=== PATIENT | female | born 1995 | race Caucasian/White ===

== ENCOUNTER → 2017-11-22 17:46 | Outpatient (CLI) | payer OTHER, MEDICAID, SELFPAY | PROVIDERS: Family Provider Nurse Practitioner Family; PCP Nurse Practitioner Family; Referring Provider Obstetrics & Gynecology; Visit Provider Obstetrics & Gynecology | DX: N91.2 Amenorrhea, unspecified (principal) | CPT/HCPCS: 36415; 84702 ==

== ENCOUNTER → 2017-11-24 17:33 | Outpatient (CLI) | payer OTHER, MEDICAID, SELFPAY | PROVIDERS: Family Provider Nurse Practitioner Family; PCP Nurse Practitioner Family; Referring Provider Obstetrics & Gynecology; Visit Provider Obstetrics & Gynecology | DX: N91.2 Amenorrhea, unspecified (principal) | CPT/HCPCS: 36415; 84702 ==

== ENCOUNTER → 2017-12-01 13:50 | Outpatient (CLI) | payer OTHER, MEDICAID, SELFPAY ==
--- NOTE | 2017-12-01 13:51 | US_ITS ---
STUDY: FIRST TRIMESTER OBSTETRICAL ULTRASOUND REASON FOR EXAM: Female, 22 years old. Gestational age/dates. LMP: 10/09/2017 TECHNIQUE: Transvaginal # of Images: 73 TECHNICAL QUALITY: Adequate. PRIOR ULTRASOUND: None. FINDINGS: There is visualization of a single gestational sac in a normal intrauterine position. The mean sac diameter (MSD) measures 2.6 cm, indicating an estimated gestational age (EGA) of 7 weeks, 6 days. The gestational sac shape is within normal limits. There is a visualized yolk sac. The yolk sac measures 3.9 mm. There is visualization of a live embryo. The crown-rump length (CRL) measures 1.46 cm, indicating an estimated gestational age (EGA) of 7 weeks, 6 days. There is demonstrated cardiac activity with a heart rate of 157 bpm. The estimated gestation age (EGA) by LMP is 7 weeks, 4 days. The estimated date of delivery (EMMA) by LMP is 07/16/2018. The estimated gestation age (EGA) by US is 7 weeks, 6 days. The estimated date of delivery (EMMA) by US is 07/14/2018. The uterus measures 9.3 x 9.3 x 6.3 cm. Retroverted uterus. Hypoechoic structure adjacent to the gestational sac/small subchorionic hemorrhage. There is no demonstrated uterine fibroid. The cervix is closed. The right ovary measures 2.6 x 1.9 x 2.1 cm. There is no right ovarian cyst. There is no visualized right adnexal mass or complex lesion. The left ovary measures 4.0 x 2.2 x 1.9 cm. There is no left ovarian cyst. There is no visualized left adnexal mass or complex lesion. There is no fluid in the cul de sac. US/Transvaginal w/Preg US IMPRESSION: 1. Single intrauterine is seen with an estimated gestational age: 7 weeks 6 days and EMMA: 07/14/2018. Based on LMP gestational age: 7 weeks 4 days and EMMA: 07/16/2018. 2. Retroverted uterus. Electronically Signed: Osorio Cruz MD at 10:50 EDT Tel , Service support ,
== END ==
PROVIDERS: Family Provider Nurse Practitioner Family; PCP Nurse Practitioner Family; Referring Provider Obstetrics & Gynecology; Visit Provider Obstetrics & Gynecology
DX: Z36.87 Encounter for antenatal screening for uncertain dates (principal)
CPT/HCPCS: 76817

== ENCOUNTER → 2017-12-20 15:15 | Outpatient (CLI) | payer OTHER, MEDICAID, SELFPAY ==
[2017-12-20 15:54] LABS: Absolute Lymphocyte Count 1.56 X10^3/ul (0.83-4.51); Absolute Neutrophil Count 6.2 X10^3/uL (2.0-7.7); Basophil# 0.02 X10^3/uL; Basophil% 0.2 % (0-1); Eosinophil# 0.04 X10^3/uL; Eosinophils% 0.5 % (0-5); Hematocrit 37.3 % (37-47); Hemoglobin 12.7 g/dl (12.0-15.0); Lymphocyte # 1.56 X10^3/ul (4.0); Lymphocyte % 18.6 % (19-41); Mean Corpuscular Hgb 29.7 pg (27.0-32.0); Mean Corpuscular Volume 87.4 fL (81-99); Mean Platelet Vol. 10.2 fl (6.2-12.0); Monocyte% 7.1 % (0-10); Neutrophil # 6.16 X10^3/uL (2.7-7.7); Neutrophil % 73.4 % (47-70); Platelet Count 241 K/mm3 (150-450); RBC Distribution Width CV 13.4 % (11.6-14.6); RBC Distribution Width SD 41.9 fl (35.1-43.9); Red Blood Count 4.27 M/mm3 (4.2-5.4); White Blood Count 8.4 K/mm3 (4.4-11.0)
[2017-12-20 15:57] LABS: POSITIVE COUNT NO; POSITIVE DIFFERENTIAL NO; POSITIVE MORPHOLOGY NO
[2017-12-20 17:11] LABS: HIV - WCH Non-Reactive (Nonreactive); Rubella IgG 45.9 IU/mL
[2017-12-20 23:55] LABS: Chlamydia Trachomatis by PCR Negative (Negative); Neisserai gonorrhoeae by PCR Negative (Negative); Probe Check PASS; Sample Adequacy Control PASS; Specimen Processing Control PASS
[2017-12-22 03:50] LABS: Rapid Plasmin Reagin (RPR) NONREACTIVE (NONREACTIVE)
[2017-12-22 10:33] LABS: HEPATITIS B SURFACE AG Negative (Negative)
[2017-12-26 14:10] LABS: HPV Reflexed? NOT INDICATED
== END ==
PROVIDERS: Nurse Practitioner Women's Health; Family Provider Nurse Practitioner Family; PCP Nurse Practitioner Family; Referring Provider Obstetrics & Gynecology; Visit Provider Obstetrics & Gynecology
DX: Z34.80 Encounter for supervision of other normal pregnancy, unspecified trimester (principal); Z12.4 Encounter for screening for malignant neoplasm of cervix
CPT/HCPCS: 36415; 85025; 86592; 86703; 86762; 86850; 86900; 87086; 87088; 87340; 87491; 87591; 87624; 88175; G0145

== ENCOUNTER → 2018-04-10 15:06 | Outpatient (CLI) | payer OTHER, MEDICAID, SELFPAY ==
[2018-04-10 14:33] VITALS: BMI 26.9
[2018-04-10 16:41] LABS: Absolute Lymphocyte Count 1.28 X10^3/ul (0.83-4.51); Basophil# 0.01 X10^3/uL; Basophil% 0.1 % (0-1); Eosinophil# 0.05 X10^3/uL; Eosinophils% 0.6 % (0-5); Hematocrit 30.3 % (37-47); Lymphocyte # 1.28 X10^3/ul (4.0); Lymphocyte % 16.1 % (19-41); Mean Corpuscular Hgb 30.8 pg (27.0-32.0); Mean Corpuscular Volume 93.2 fL (81-99); Mean Platelet Vol. 10.2 fl (6.2-12.0); Monocyte# 0.56 X10^3/uL; Monocyte% 7.1 % (0-10); Neutrophil # 5.96 X10^3/uL (2.7-7.7); Neutrophil % 75.1 % (47-70); Platelet Count 204 K/mm3 (150-450); RBC Distribution Width CV 13.3 % (11.6-14.6); Red Blood Count 3.25 M/mm3 (4.2-5.4); White Blood Count 7.9 K/mm3 (4.4-11.0)
[2018-04-10 16:42] LABS: POSITIVE COUNT NO; POSITIVE DIFFERENTIAL NO; POSITIVE MORPHOLOGY NO
[2018-04-10 16:46] LABS: Glucose Challenge Gest 1H 50g 120 mg/dL (70-140)
== END ==
PROVIDERS: Family Provider Nurse Practitioner Family; PCP Nurse Practitioner Family; Referring Provider Obstetrics & Gynecology; Visit Provider Obstetrics & Gynecology
DX: Z34.80 Encounter for supervision of other normal pregnancy, unspecified trimester (principal)
CPT/HCPCS: 36415; 82950; 85025; 86850; 86900

== ENCOUNTER 2018-05-25 16:01 | Outpatient (CLI) | payer OTHER, MEDICAID, SELFPAY ==
[2018-05-24 14:14] VITALS: BMI 26.9
[2018-05-25 16:17] VITALS: BMI 31.1
[2018-05-25 17:15] LABS: Color, Urine Yellow (Yellow); Glucose, Dipstick Normal (Normal); Ketone-Dipstick 5 mg/dl (Negative); Leukocyte Esterase-Dipstick 25 /ul (Negative); Nitrite-Dipstick Negative (Negative); Occult Blood-Urine Negative /ul (Negative); Protein-Dipstick Negative (Negative); Specific Gravity, Urine 1.015 (1.002-1.030); Urine Bilirubin Dipstick Negative (Negative); Urine Clarity Sl. Cloudy (Clear); Urine Urobilinogen Normal (Normal)
--- NOTE | 2018-05-27 08:53 | OB.TRI.PN ---
Progress Notes Date of Service: 05/25/18 Progress Note: Patient presented with small amount of vaginal bleeding suspected UTI. Cervix was checked and not dilated heart tones 140s moderate variability reactive no decelerations [place]: No regular contractions Assessment and plan vaginal bleeding suspected UTI will send urine for culture reviewed labor precautions category 1 tracing reactive NST DC home Laboratory Studies: Laboratory Tests 05/25/18 Range/Units 17:00 Urine Color Yellow (Yellow) Urine Clarity Sl. Cloudy (Clear) Urine pH 6.0 (5.0 - 8.0) Ur Specific [place] 1.015 (1.002-1.030) Urine Protein Negative (Negative) mg/dl Urine Glucose (UA) Normal (Normal) mg/dl Urine Ketones 5 H (Negative) mg/dl Urine Occult Blood Negative (Negative) /ul Urine Nitrite Negative (Negative) Urine Bilirubin Negative (Negative) mg/dL Urine Urobilinogen Normal (Normal) mg/dl Ur Leukocyte Esterase 25 H (Negative) /ul
== END 2018-05-25 17:40 | disposition home or self-care (01) ==
LOC: WPOUT 16:03 → WP 05-28 09:45
PROVIDERS: Family Provider Nurse Practitioner Family; PCP Nurse Practitioner Family; Referring Provider Obstetrics & Gynecology; Visit Provider Obstetrics & Gynecology
DX: O46.90 Antepartum hemorrhage, unspecified, unspecified trimester (principal); Z3A.00 Weeks of gestation of pregnancy not specified
CPT/HCPCS: 59025; 59050; 81002; 87086; 87088; 99218; G0378

== ENCOUNTER → 2018-06-07 16:23 | Outpatient (CLI) | payer OTHER, MEDICAID, SELFPAY ==
[2018-06-07 15:08] VITALS: BMI 30.9
--- NOTE | 2018-06-07 16:38 | US_ITS ---
STUDY: SECOND AND THIRD TRIMESTER OBSTETRICAL ULTRASOUND - LIMITED REASON FOR EXAM: Female, 22 years old. Evaluate growth LMP: Unknown. PRIOR ULTRASOUND: None. TECHNIQUE: Transabdominal TECHNICAL QUALITY: Adequate. FINDINGS: There is a single intrauterine fetus. The fetus is in a cephalic presentation. There is demonstrated cardiac activity with a heart rate of 158 bpm. There is a normal amniotic fluid volume. The largest amniotic fluid pocket measures 6.1 cm. The amniotic fluid index (KYRA) is 13.7 cm. The placenta is anterior in location and is not low lying. There are Grade 1 placental changes. The cervix measures 3.4 cm cm in length. BIOMETRY: BPD: 8.5 cm: 34 weeks, 1 days HC: 32.7 cm: 37 weeks, 2 days AC: 31.7 cm: 35 weeks, 5 days FL: 6.8 cm: 35 weeks, 0 days age by prior US: 34 weeks, 5 days. EMMA by prior US: 07/14/2018. age by current US: 35 weeks, 4 days. EMMA by current US: 07/08/2018. Estimated weight: 2684 grams, +/- 392 grams, 68 percentile. Gender: Female US/OB Limited With Biometrics IMPRESSION: Single live intrauterine at gestational age of 35 weeks 4 days with estimated date of delivery 07/08/2018 Electronically Signed: Mitchel Bates DO at 20:29 EDT Tel , Service support ,
--- NOTE | 2018-06-07 16:38 | US_ITS ---
STUDY: OBSTETRICAL ULTRASOUND - BIOPHYSICAL PROFILE REASON FOR EXAM: Female, 22 years old. Evaluate well-being LMP: Unknown. PRIOR ULTRASOUND: None. TECHNIQUE: Transabdominal TECHNICAL QUALITY: Adequate. FINDINGS: There is a single intrauterine fetus. The fetus is in a cephalic presentation. There is demonstrated cardiac activity with a heart rate of 139 bpm. There is a normal amniotic fluid volume. The largest amniotic fluid pocket measures 5.3 cm. The amniotic fluid index (KYRA) is 13.7 cm. The placenta is anterior in location and is not low lying. There are Grade 1 placental changes. BIOPHYSICAL PROFILE: Breathing Movements (FBM): 2 Gross Body Movements (GBM): 2 Tone (FT): 2 Amniotic Fluid Volume (AFV): 2 TOTAL SCORE: US/Biophysical Profile IMPRESSION: Normal biophysical profile of 09/20. Electronically Signed: Mitchel Bates DO at 20:27 EDT Tel , Service support ,
== END ==
PROVIDERS: Family Provider Nurse Practitioner Family; PCP Nurse Practitioner Family; Referring Provider Obstetrics & Gynecology; Visit Provider Obstetrics & Gynecology
DX: Z34.80 Encounter for supervision of other normal pregnancy, unspecified trimester (principal)
CPT/HCPCS: 76816; 76818

== ENCOUNTER → 2018-06-21 16:41 | Outpatient (CLI) | payer OTHER, MEDICAID, SELFPAY ==
[2018-06-21 14:52] VITALS: BMI 30.9
== END ==
PROVIDERS: Family Provider Nurse Practitioner Family; PCP Nurse Practitioner Family; Referring Provider Nurse Practitioner Women's Health; Visit Provider Nurse Practitioner Women's Health
DX: Z34.80 Encounter for supervision of other normal pregnancy, unspecified trimester (principal)
CPT/HCPCS: 87081

== ENCOUNTER 2018-06-30 02:00 | Outpatient (CLI) | payer OTHER, MEDICAID, SELFPAY ==
[2018-06-29 15:32] VITALS: BMI 30.9
[2018-06-30 02:41] VITALS: BMI 36.9
[2018-06-30 03:16] LABS: ROM Internal Control Test YES-OK TO RESULT pt. (Internal QC); ROM Patient Test Negative (Negative)
--- NOTE | 2018-07-05 21:02 | OB.TRI.PN ---
Progress Notes Date of Service: 06/30/18 Progress Note: Once for contractions but no cervical change heart tones 130s moderate variability reactive no decelerations category 1 [address] [place]: Irregular Assessment false labor no cervical change DC home labor precautions reactive NST Laboratory Studies: Laboratory Tests 06/30/18 Range/Units 02:45 Vag Amniotic Fld Detect Negative (Negative)
--- NOTE | 2018-07-05 21:05 | OB.TRI.PN_ITS ---
Progress Notes Date of Service: 06/30/18 Progress Note: Once for contractions but no cervical change heart tones 130s moderate variability reactive no decelerations category 1 tracing [place]: Irregular Assessment false labor no cervical change DC home labor precautions reactive NST Laboratory Studies: Laboratory Tests 06/30/18 Range/Units 02:45 Vag Amniotic Fld Detect Negative (Negative)
== END 2018-06-30 03:45 | disposition home or self-care (01) ==
LOC: WPOUT 02:34 → WP 02:35
PROVIDERS: Family Provider Nurse Practitioner Family; PCP Nurse Practitioner Family; Visit Provider Obstetrics & Gynecology
DX: O47.9 False labor, unspecified (principal); Z3A.00 Weeks of gestation of pregnancy not specified
CPT/HCPCS: 59025; 59050; 84112; 99218; G0378

== ENCOUNTER 2018-07-06 16:45 | Inpatient (IN) | payer OTHER, MEDICAID, SELFPAY ==
[2018-07-06 16:33] VITALS: BMI 36.9
[2018-07-06] MEDS: Lactated Ringers 1,000 ML 50 ML IV ×3 (17:00→21:38)
[2018-07-06 17:10] VITALS: BMI 31.5
[2018-07-06 17:28] LABS: Absolute Lymphocyte Count 1.49 X10^3/ul (0.83-4.51); Absolute Neutrophil Count 7.3 X10^3/uL (2.0-7.7); Basophil# 0.02 X10^3/uL; Basophil% 0.2 % (0-1); Eosinophil# 0.03 X10^3/uL; Eosinophils% 0.3 % (0-5); Hematocrit 35.3 % (37-47); Hemoglobin 11.7 g/dl (12.0-15.0); Lymphocyte # 1.49 X10^3/ul (4.0); Lymphocyte % 15.2 % (19-41); Mean Corp Hgb Conc 33.1 g/gl (32-36); Mean Corpuscular Hgb 29.4 pg (27.0-32.0); Mean Corpuscular Volume 88.7 fL (81-99); Mean Platelet Vol. 10.2 fl (6.2-12.0); Monocyte# 0.88 X10^3/uL; Neutrophil # 7.29 X10^3/uL (2.7-7.7); Neutrophil % 74.5 % (47-70); POSITIVE COUNT NO; POSITIVE DIFFERENTIAL NO; POSITIVE MORPHOLOGY NO; Platelet Count 190 K/mm3 (150-450); RBC Distribution Width CV 15.1 % (11.6-14.6); RBC Distribution Width SD 48.7 fl (35.1-43.9); Red Blood Count 3.98 M/mm3 (4.2-5.4); White Blood Count 9.8 K/mm3 (4.4-11.0)
--- NOTE | 2018-07-06 18:47 | PCM.HP.OB ---
History Date of Admission: 07/06/18 Final EMMA: 07/14/18 Final EMMA Source: US <20 weeks Gestational age: 38 Weeks and 6 Days History of this : This is a 22 year-old, G 2, P 1, at 38 6/7 wk weeks gestational age. care established at 10 dk EGA Uncomplicated. LABS: B positive Rubella immune GBS negative Hepatitis Neg Prior h/o 9# 5 oz Epidural with fractured coccyx Medical History: Medical History (Last Reviewed 07/06/18 @ 16:16 by Ira Madison) Migraines G43.909 Allergies No Known Allergies Allergy (Verified 07/06/18 17:11) Home Medications: Home Medications ferrous sulfate 325 mg (65 mg iron) tablet 325 mg PO DAILY tab 04/24/18 vitamin #56-iron 35 mg and 5 mg-folic acid 1 mg-dha capsule 1 cap PO QHS 07/06/18 Smoking Status: Former smoker Alcohol: None Number of Fetus(es): 1 Heart Tracins accels TOCO Analysis: UCs q 3- 4mins. Intermittent tracing History Past Pregnancies: Past Pregnancies Delivery Date Name GA/Weeks Outcome Route Weight Gender Labor Length Anesthesia Delivery Location Provider FOB Expected Infant Delivery Method: Spontaneous Vaginal Review of Systems Constitutional: Denies: Anorexia Gynecological: Reports: - - UCs q 3-4 minutes, not painful. Denies: Vaginal bleeding Physical Exam General: Alert, Oriented x3, Cooperative, No apparent distress HEENT: Atraumatic Abdomen: Soft, Non Tender, Gravid Extremities:: No clubbing, No cyanosis Neurological: Cranial nerves II-XII grossly intact LOCKSTITCH TOPSTITCHER: Normal external genitalia Estimated gestational size: Appropriate for gestational size Presentation: Cephalic Cervix Dilation (cm): 5 Station: -2 Assessment/Plan All Active Problems (Last Reviewed 07/06/18 @ 16:16 by Ira Madison) IUD contraception (Acute) Anemia affecting (Acute) (Acute) Supervision of other normal (Acute) Headache in (Resolved) This is a 22 year-old, G 2, P 1, at 38 6/7 weeks gestational age. Advanced cervical dilatation 5 cm with BBOW. admit for labor and delivery. Plans epidural. Anticipate AROM when epidural in place.
[2018-07-06] MEDS: fentaNYL-bupivacaine (epidural) 100 ML BAG EPIDURAL (19:55)
--- NOTE | 2018-07-06 20:06 | PCM.PN.BLA ---
Progress Note LABOR PROGRESS NOTE Comfortable w/ epidural AVSS EFM 140s category I tracing. UCs irreg pick up attendant CX: /-2 mod firm A/P: 38 6/7 wk labor. AROM Epidural in place. Watch progress, consider pitocin prn.
--- NOTE | 2018-07-06 20:31 | NURSING ---
Dr Vasquez aware of pt's plan for epidural, but feeling no pain at this time. Dr vasquez headed to emergency surgery in main OR and then will come to over to place epidural after.
[2018-07-06] MEDS: Oxytocin 30 units/NS 500 ml 30 UNITS/500 ML IV.SOLN IV (21:05)
[2018-07-06] MEDS: Oxytocin 30 units/NS 500 ml 30 UNITS/500 ML IV.SOLN 334 UNITS IV (22:31)
[2018-07-06] MEDS: Methylergonovine 0.2 MG/ML Ampul IM (22:39)
--- NOTE | 2018-07-06 22:40 | DCINST_ITS ---
Discharge Diet: No Restrictions Discharge Activity: May Shower, May Take a Tub Bath May resume sexual activity in: 4-6 weeks Additional Activity Instructions:: Nothing in the vagina for 4-6 weeks. You may return to work/school in 6 weeks. Additional Instructions: If you experience any of the following, contact your healthcare provider. * Bleeding that soaks a pad every hour for 2 hours * Fever 100.4 or higher * Unrelieved abdominal pain * Problems urinating (including inability to urinate or burning while urinating). * Visual changes * Severe headache * Flu-like symptoms * Pain or redness in one of both of your breasts * Pain, warmth, tenderness or swelling in your legs, especially the calf area * Frequent nausea and vomiting * Symptoms of depression or anxiety If you experience any of the following, call 911 or go to the nearest Emergency Room. * Chest pain * Problems breathing * Seizure activity * Partial or complete paralysis of a body part, slurred speech, weakness or drooping of the face, or a sudden inability to walk or hold your balance Allergies/Adverse Reactions: Allergies No Known Allergies Allergy (Verified 07/06/18 17:11) Medications to take at Discharge ferrous sulfate 325 mg (65 mg iron) tablet 325 mg PO DAILY tab 04/24/18 vitamin #56-iron 35 mg and 5 mg-folic acid 1 mg-dha capsule 1 cap PO QHS 07/06/18 Please Follow Up With: Deborah Tarango MD When: Call to make an appointment with your doctor in 6 weeks. If you had elevated Blood Pressure or 4th degree laceration you will need to be seen in 2 weeks. Primary Care Physician: Xiao Plasencia NP-C [Primary Care Provider] - Test Results: Test results from this visit will be discussed in further detail at your follow- up appointment, if applicable. Proposed Discharge Date: 07/08/18
--- NOTE | 2018-07-06 22:41 | PCM.OPRPT ---
Vaginal Delivery Maternal Presentation: Active Labor 38 6/7 wk EGA Labor Amniotic Membrane Rupture Type: Artificial Amniotic Fluid Description: Clear Final EMMA: 07/14/18 Gestational age: 38 Weeks and 6 Days Date of Procedure: 07/06/18 Pre-Operative Diagnosis: 38 6/7 wk advanced cervical dilation,labor Post-Operative Diagnosis: same Surgery/ Procedure Performed: Spontaneous Vaginal Delivery Anesthesiologist: Riana Quinones MD Type of Anesthesia: Epidural Description of Procedure: of a mason viable female over intact perineum. Head delivered CAMMY. OP and nares bulb suctioned on perineum. Nuchal cord x one reduced. Shoulders delivered easily. Infant to maternal abdomen. Delayed cord clamp..then cord clamped times two and cut. Routine ABG and VBG collected. PP exam:1st deg posterior vaginal laceration, hemostatic no repair required Placenta delivered by spont expulsion, expression. 3V cord, normal appearing with trailing membranes Mild uterine atony of lower uterina segment. Called back to room for this. Clots evacuated bimanual exam and Banjo curette EBL 475 cc IV Pitocin given. Methergine 0.2 mg IM x one. Cytotec 1000 mcg rectal dose Excellent response noted to these measures. Presentation: Vertex, CAMMY Placental Delivery Description: Spontaneous, Expressed Placenta Disposition: [facility] Cord Vessel Description: 3 Vessels Nuchal Cord Compression: Without compression Cord Gases drawn per routine: ABG, VBG Cord Entanglement: Around neck x 1, loose Drain: Sebastian to straight drain Estimated Blood Loss: 475 cc A gender: Female (1 minute): 8 (5 minute): 9 Episiotomy Description: None Laceration: Midline, Vaginal Extension/lac - no repair required., 1st degree Medications given after delivery: IV Pitocin, IM Methergin, - - Cytotec 1000 mcg OK times one. Complications: None
[2018-07-06] MEDS: miSOPROStol 200 MCG Tablet 1000 MCG RECTAL (22:47)
[2018-07-06] MEDS: Oxytocin 30 units/NS 500 ml 30 UNITS/500 ML IV.SOLN 167 UNITS IV (23:01)
[2018-07-06] MEDS: Acetaminophen 500 MG Tablet 1000 MG PO (23:24)
--- NOTE | 2018-07-07 01:07 | NURSING ---
680EBL = 350 (from delivery) + 330 (from recovery)
[2018-07-07 04:03] VITALS: BP 116/69; PULSE 104; RESP 16; TEMP 37.4; O2SAT 98
--- NOTE | 2018-07-07 04:14 | NURSING ---
Epidural removed, blue tip intact.
[2018-07-07 05:02] LABS: Hematocrit 32.8 % (37-47); Hemoglobin 10.9 g/dl (12.0-15.0); Mean Corp Hgb Conc 33.2 g/gl (32-36); Mean Corpuscular Hgb 29.2 pg (27.0-32.0); Mean Corpuscular Volume 87.9 fL (81-99); Mean Platelet Vol. 9.8 fl (6.2-12.0); Platelet Count 181 K/mm3 (150-450); RBC Distribution Width CV 14.9 % (11.6-14.6); RBC Distribution Width SD 46.9 fl (35.1-43.9); Red Blood Count 3.73 M/mm3 (4.2-5.4); White Blood Count 13.3 K/mm3 (4.4-11.0)
[2018-07-07 05:07] LABS: Scan Indicated on CBC? Y/N NO
--- NOTE | 2018-07-07 07:55 | PN_ITS ---
Subjective: PPD#1 Doing well. No concerns Baby smaller than her first. denies any pain at tailbone (h/o fx with first delivery) nursing well. - Physical Exam General: Alert, Oriented x3, Cooperative, No apparent distress HEENT: Atraumatic Neck: Supple Abdomen: Soft - fundus firm NT , inferior to umbilicus Neurological: Cranial nerves II-XII grossly intact Psych/Mental Status: Normal Affect Vital Signs Temp Pulse Resp BP Pulse Ox 99.3 F H 104 H 16 116/69 98 07/07/18 04:03 07/07/18 04:03 07/07/18 04:03 07/07/18 04:03 07/07/18 04:03 Oxygen Delivery Method Room Air Weight: 86 kg Body Mass Index (BMI) 31.5 Intake and Output for Last 24 Hours 07/05/18 07/06/18 07/07/18 23:59 23:59 23:59 Intake Total 2720 / 2720 Output Total 450 / 450 Balance 2270 / 2270 Laboratory Tests Past 24 Hrs 07/06/18 07/06/18 07/07/18 17:10 17:10 04:45 WBC 9.8 13.3 H RBC 3.98 L 3.73 L Hgb 11.7 L 10.9 L Hct 35.3 L 32.8 L MCV 88.7 87.9 MCH 29.4 29.2 MCHC 33.1 33.2 RDW 15.1 H 14.9 H RDW Differential 48.7 H 46.9 H Plt Count 190 181 MPV 10.2 9.8 Immature Gran % (Auto) 0.800 Neut % (Auto) 74.5 H Lymph % (Auto) 15.2 L [place] % (Auto) 9.0 Eos % (Auto) 0.3 Baso % (Auto) 0.2 Absolute Neuts (auto) 7.3 Absolute Lymphs (auto) 1.49 Total Counted Not Reportable Blood Type B POSITIVE Antibody Screen NEGATIVE Medical Necessity - Tobacco Use Smoking Status: Former smoker Assessment/Plan All Active Problems (Last Reviewed 07/06/18 @ 16:16 by Ira Madison) IUD contraception (Acute) Anemia affecting (Acute) (Acute) Supervision of other normal (Acute) Headache in (Resolved) PPD#1 38 6/7 weeks S/P Stable . B positive. Late delivery. will plan to stay until 07/08/18 Continue routine care
[2018-07-07 10:00] VITALS: BP 109/74; PULSE 88; RESP 16; TEMP 37.3
--- NOTE | 2018-07-07 10:09 | NURSING ---
0900Ambulates to bathroom. Voids 500ml, josey well. Angie care done per pt, demonstrates understanding. Ice pack to perineum per pt request. Returns to bed. FF U/2. No edema noted perineum. Nurses baby with correct latch noted. States she feels good.
[2018-07-07] MEDS: Senna/Docusate Sodium 1 Tablet PO (10:24)
[2018-07-07] MEDS: Ibuprofen 600 MG Tablet PO ×2 (10:24→16:46)
[2018-07-07] MEDS: Acetaminophen 500 MG Tablet 1000 MG PO ×2 (11:40→21:02)
[2018-07-07 17:35] VITALS: BP 109/57; PULSE 87; RESP 16; TEMP 37.7
[2018-07-07 18:00] VITALS: BP 165/91; PULSE 86; RESP 16; TEMP 37.2
--- NOTE | 2018-07-07 19:13 | NURSING ---
1200 Dr. Kidd notified of elevated blood pressure prior to administration of Hydralazine dose at 1100. No new orders.
[2018-07-07 19:20] VITALS: BP 109/59; PULSE 97; RESP 20; TEMP 37.1; O2SAT 96
[2018-07-08 00:04] VITALS: BP 108/88; PULSE 90; RESP 20; TEMP 36.2; O2SAT 98
[2018-07-08] MEDS: Ibuprofen 600 MG Tablet PO ×2 (00:32→08:27)
[2018-07-08] MEDS: Ferrous Sulfate 325 MG Tablet PO (00:37)
--- NOTE | 2018-07-08 00:42 | NURSING ---
Pt requested po iron at this time. Takes prior to sleeping d/t nausea in morning with . Pt wishes to continue to take in evenings. Medication given.
[2018-07-08 03:55] VITALS: BP 110/67; PULSE 76; RESP 18; TEMP 36.4; O2SAT 99
[2018-07-08] MEDS: Acetaminophen 500 MG Tablet 1000 MG PO ×2 (05:31→13:01)
--- NOTE | 2018-07-08 07:33 | PCM.PN.BLA ---
Progress Note LABOR PROGRESS NOTE -- SROM 2330 last night. 40 5/7 wk EGA Comfortable w/ epidural. A neg. GBS neg. AVSS Pitocin induction after SROM (clear fluid) EFM 120-130s with accels to 150s. Avg variability. Category I tracing UCs q 2-3 mins CX 4/100/-2 VTX A/P: 40 5/7 wk EGA SROM. Pitocin induction. Continue pitocin, watch progress and descent. EFM reassuring.
--- NOTE | 2018-07-08 07:49 | PCM.PN.OB ---
Subjective: PPD#2 Doing well. no concerns voiced. - Physical Exam General: Alert, Oriented x3, Cooperative, No apparent distress HEENT: Atraumatic Neck: Supple Abdomen: Soft - Fundus firm NT inferior to umbilicus Extremities: No clubbing, No cyanosis Psych/Mental Status: Normal Affect Vital Signs Temp Pulse Resp BP Pulse Ox 97.6 F L 76 18 110/67 99 07/08/18 03:55 07/08/18 03:55 07/08/18 03:55 07/08/18 03:55 07/08/18 03:55 Oxygen Delivery Method Room Air Weight: 86 kg Body Mass Index (BMI) 31.5 Intake and Output for Last 24 Hours 07/06/18 07/07/18 07/08/18 23:59 23:59 23:59 Intake Total 2720 / 2720 Output Total 950 / 950 Balance 1770 / 1770 Medical Necessity - Tobacco Use Smoking Status: Former smoker Assessment/Plan All Active Problems (Last Reviewed 07/06/18 @ 16:16 by Ira Madison) IUD contraception (Acute) Anemia affecting (Acute) (Acute) Supervision of other normal (Acute) Headache in (Resolved) PPD#2 38 6/7 weeks S/P Stable . Dischg home today. RTO to Dr Tarango in 6 wk for pp check prn sooner.
[2018-07-08 08:00] VITALS: BP 96/53; PULSE 77; RESP 18; TEMP 37.1
[2018-07-08] MEDS: Senna/Docusate Sodium 1 Tablet PO (08:28)
[2018-07-08 13:47] VITALS: BP 104/59; PULSE 85; RESP 18; TEMP 37.1
== END 2018-07-08 13:45 | disposition home or self-care (01) | DRG 768 ==
PROVIDERS: Admitting Provider Obstetrics & Gynecology; Family Provider Nurse Practitioner Family; PCP Nurse Practitioner Family; Referring Provider Obstetrics & Gynecology; Visit Provider Obstetrics & Gynecology
DX: O99.02 Anemia complicating childbirth (principal); D64.9 Anemia, unspecified; O75.89 Other specified complications of labor and delivery; O69.81X0 Labor and delivery complicated by cord around neck, without compression, not applicable or unspecified; Z79.899 Other long term (current) drug therapy; Z87.891 Personal history of nicotine dependence; Z3A.38 38 weeks gestation of pregnancy; Z37.0 Single live birth
CPT/HCPCS: 59025; 59050; 85025; 85027; 86850; 86900; 99218; J7120; G0378

== ENCOUNTER → 2020-09-03 | Outpatient (CLI) | payer OTHER, SELFPAY ==
[2020-09-03 14:57] VITALS: BMI 31.5
== END | disposition home or self-care (01) ==
PROVIDERS: PCP Family Medicine; Visit Provider Obstetrics & Gynecology
DX: N34.0 Urethral abscess (principal)
CPT/HCPCS: 87070; 87077; 87186; 87205

== ENCOUNTER → 2020-09-16 11:19 | Outpatient (CLI) | payer OTHER, SELFPAY ==
[2020-09-03 14:57] VITALS: BMI 31.5
--- NOTE | 2020-09-16 11:22 | US_ITS ---
STUDY: ULTRASOUND OF THE FEMALE PELVIS - COMPLETE REASON FOR EXAM: Female, 24 years old. uterine prolapse LMP: Unknown. TECHNIQUE: Transabdominal TECHNICAL QUALITY: Adequate. COMPARISON: None. FINDINGS: The uterus is retroverted and is in a midline position. The uterus measures 9.2 x 5.5 x 4.9 cm. Normal uterine cervix. The endometrium measures mm in thickness, and is . There is no demonstrated endometrial mass. There is no demonstrated myometrial mass. I.U.D. - The patient does have an I.U.D., in the lower uterine segment, although difficult to determine exact location (not well seen on transabdominal images with retroverted uterus. The right ovary is visualized. The right ovary measures 2.9 x 1.7 x 1.5 cm. There is no right ovarian cyst or ovarian mass. There is no visualized right adnexal mass or complex lesion. There is normal arterial and normal venous vascularity. The left ovary is visualized. The left ovary measures 4.8 x 4.4 x 3.8 cm. 4.1 x 3.8 x 3.3 cm septated cyst of the left ovary, likely hemorrhagic cyst. ACR White Paper guidelines (Collado, et. al. Radiology 2010; 256(3):943-954) suggest no follow-up is necessary. There is no visualized left adnexal mass or complex lesion. There is normal arterial and normal venous vascularity. There is minimal fluid in the cul-de-sac. Visualized urinary bladder is unremarkable. US/Pelvic (Non ) IMPRESSION: 1. Limited due to transabdominal only imaging. 2. IUD of indeterminate location, likely lower uterine segment. Electronically Signed: Edy Enrique MD ([place]) at 8:47 EDT , Service support ,
== END ==
PROVIDERS: PCP Family Medicine; Referring Provider Urology; Visit Provider Urology
DX: N81.4 Uterovaginal prolapse, unspecified (principal)
CPT/HCPCS: 76856

== ENCOUNTER → 2020-10-22 15:06 | Outpatient (CLI) | payer OTHER, SELFPAY ==
[2020-10-22 15:19] LABS: Absolute Lymphocyte Count 1.92 X10^3/uL (0.83-4.51); Absolute Neutrophil Count 4.4 X10^3/uL (2.0-7.7); Basophil# 0.03 X10^3/uL; Basophil% 0.4 % (0-1); Eosinophil# 0.05 X10^3/uL; Eosinophils% 0.7 % (0-5); Hematocrit 39.6 % (37-47); Hemoglobin 12.6 g/dL (12.0-15.0); Lymphocyte # 1.92 X10^3/ul (0.83-4.51); Lymphocyte % 27.8 % (19-41); Mean Corp Hgb Conc 31.8 g/dL (32-36); Mean Corpuscular Hgb 28.8 pg (27.0-32.0); Mean Corpuscular Volume 90.6 fL (81-99); Monocyte# 0.47 X10^3/uL; Monocyte% 6.8 % (0-10); NRBC Flagged by Analyzer 0 % (0-5); Neutrophil # 4.41 X10^3/uL (2.7-7.7); Neutrophil % 63.9 % (47-70); Platelet Count 293 K/mm3 (150-450); RBC Distribution Width CV 13.1 % (11.6-14.6); RBC Distribution Width SD 43.7 fl (35.1-43.9); Red Blood Count 4.37 M/mm3 (4.2-5.4); White Blood Count 6.9 K/mm3 (4.4-11.0)
== END ==
PROVIDERS: PCP Family Medicine; Referring Provider Obstetrics & Gynecology; Visit Provider Obstetrics & Gynecology
DX: N93.9 Abnormal uterine and vaginal bleeding, unspecified (principal)
CPT/HCPCS: 36415; 85025

== ENCOUNTER → 2020-11-25 13:36 | Outpatient (CLI) | payer OTHER, SELFPAY ==
--- NOTE | 2020-11-25 13:53 | US_ITS ---
STUDY: ULTRASOUND OF THE FEMALE PELVIS - COMPLETE REASON FOR EXAM: Female, 25 years old. AUB LMP: 09/26/2020. TECHNIQUE: Transabdominal and Transvaginal TECHNICAL QUALITY: Adequate. COMPARISON: Comparison is made with prior study dated 09/16/2020. FINDINGS: The uterus is retroverted and is in a midline position. The uterus measures 8.5 cm x 7 cm x 5.5 cm. Normal uterine cervix. The endometrium measures 3.1 mm in thickness, and is hyperechoic. A small amount of fluid is seen in the endometrial canal. There is evidence of a 1.7 cm x 0.9 cm x 0.5 cm polyp within the endometrium in the mid to lower uterine segment. There is no demonstrated myometrial mass. I.U.D. - The patient does not have an I.U.D. The right ovary is visualized. The right ovary measures 2.5 cm x 1.5 cm x 1.4 cm. There is no right ovarian cyst or ovarian mass. There is no visualized right adnexal mass or complex lesion. There is normal arterial and normal venous vascularity. The left ovary is visualized. The left ovary measures 3.4 cm x 1.9 cm x 1.4 cm. There is no left ovarian cyst or ovarian mass. There is no visualized left adnexal mass or complex lesion. There is normal arterial and normal venous vascularity. There is no fluid in the cul-de-sac. The pre void volume of the bladder was 285 ml. US/Pelvic (Non ) IMPRESSION: Small amount of endometrial fluid with findings suggestive of a small polyp. Electronically Signed: Reilly Block MD at 14:33 EDT , Service support ,
--- NOTE | 2020-11-25 13:53 | US_ITS ---
STUDY: ULTRASOUND OF THE FEMALE PELVIS - COMPLETE REASON FOR EXAM: Female, 25 years old. AUB LMP: 09/26/2020. TECHNIQUE: Transabdominal and Transvaginal TECHNICAL QUALITY: Adequate. COMPARISON: Comparison is made with prior study dated 09/16/2020. FINDINGS: The uterus is retroverted and is in a midline position. The uterus measures 8.5 cm x 7 cm x 5.5 cm. Normal uterine cervix. The endometrium measures 3.1 mm in thickness, and is hyperechoic. A small amount of fluid is seen in the endometrial canal. There is evidence of a 1.7 cm x 0.9 cm x 0.5 cm polyp within the endometrium in the mid to lower uterine segment. There is no demonstrated myometrial mass. I.U.D. - The patient does not have an I.U.D. The right ovary is visualized. The right ovary measures 2.5 cm x 1.5 cm x 1.4 cm. There is no right ovarian cyst or ovarian mass. There is no visualized right adnexal mass or complex lesion. There is normal arterial and normal venous vascularity. The left ovary is visualized. The left ovary measures 3.4 cm x 1.9 cm x 1.4 cm. There is no left ovarian cyst or ovarian mass. There is no visualized left adnexal mass or complex lesion. There is normal arterial and normal venous vascularity. There is no fluid in the cul-de-sac. The pre void volume of the bladder was 285 ml. US/Transvaginal Non- IMPRESSION: Small amount of endometrial fluid with findings suggestive of a small polyp. Electronically Signed: Reilly Block MD at 14:33 EDT , Service support ,
== END ==
PROVIDERS: PCP Family Medicine; Referring Provider Obstetrics & Gynecology; Visit Provider Obstetrics & Gynecology
DX: N93.9 Abnormal uterine and vaginal bleeding, unspecified (principal)
CPT/HCPCS: 76830; 76856

== ENCOUNTER → 2020-11-30 15:37 | Outpatient (CLI) | payer OTHER, SELFPAY ==
[2020-11-30 16:45] LABS: NATERA MAILED SPECIMEN
== END ==
PROVIDERS: PCP Family Medicine; Referring Provider Obstetrics & Gynecology; Visit Provider Obstetrics & Gynecology
DX: Z13.9 Encounter for screening, unspecified (principal); Z80.41 Family history of malignant neoplasm of ovary
CPT/HCPCS: 36415

== ENCOUNTER 2021-01-05 08:27 | Day surgery (SDC) | payer OTHER, SELFPAY ==
--- NOTE | 2021-01-05 | EMB_PTH ---
PATIENT: SADE WOODRUFF [place] [facility] [place][id number] AGE/SX: 25/F ROOM: RE01/05/[address]: Dr. Deborah Tarango MD : [id number] BED: DIS: 01/05/2021 SPEC #: [id number] RECD: 01/05/21 11:45 STATUS: ANNMARIE REJeovany #: [id number] GAYE: 01/05/21 00:[address]: Deborah Tarango DEPT: SURGICAL PATHOLOGY RECD BY: Gumaro Bryant ENTERED: 01/05/21 11:46 SP TYPE: ENDOM BX/C OTHR DR: Dr. 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 Chronic endometritis. Rare strips of benign endocervix. AM:am 01/06/21 MICROSCOPIC DESCRIPTION Slides are reviewed. GROSS DESCRIPTION Received in fixative is one container labeled with the patient's name and designated endometrial curettings. The specimen consists of multiple fragments of pink hemorrhagic soft tissue that in aggregate measure 5 x 3 x 0.2 cm. The specimen is totally submitted in two cassettes. / SJ:rg 01/05/2021 TC:3 CPT: 98918
--- NOTE | 2021-01-05 07:06 | HP.PCM_ITS ---
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 Deborah Tarango MD) Migraines Family History (Updated 11/30/20 @ 15:33 by Lisa Ross) Grandmother Ovarian cancer Grandfather Prostate cancer Father Basal cell carcinoma Social History current occupational status: employed current occupation: [employer] Smoking Status: Former smoker alcohol intake: never substance use type: does not use seatbelt use: always do you feel safe at home: Yes additional social history: [employer] [facility] Discuss surgical option Details: SADE WOODRUFF is a 25 year old who presents for follow-up of abnormal uterine bleeding. She has been managed with an IUD in the past that was removed due to malposition. She has had heavy irregular bleeding despite being on an oral combination OCP. Upon ultrasound evaluation there is an endometrial polyp seen within the lining. Patient is having heavy clotty bleeding saturating a pad within an hour or 2 and has cramping with it. She also has some dyspareunia with it. Pregancy History 2 Elective abortions Hx Para 2 Spontaneous abortions Hx # Term Pregnancies Ectopic pregnancies Hx # Pregnancies Multiple births # of living children 2 Past Pregnancies Del. Date Name GA/Weeks Outcome Route Bth Weight Infant Gen Labor Lgth Anesthesia Del Locatn Provider FOB 03/15/16 Gretchen 41 live - full term 9 lbs. 4.9 oz. Male 5 hours epidural Josie Stuart 07/06/18 Mohan 39 live - full term 8lbs 15oz Female 3 hours epidural [facility] Dr. Kidd Delivery Date: 03/15/16 Mom received a fractured tailbone during labor TayHeather Delivery Date: 07/06/18 No issues Gricelda,Ira ROS Const Constitutional: Denies fatigue, fever(s), headache(s), increased appetite, poor appetite, weight gain or weight loss GI GI: Reports as per HPI; Denies abdominal pain, constipation, nausea or vomiting : Reports as per HPI; Denies difficulty voiding, dysuria, hematuria, pelvic pain, urinary frequency, urinary incontinence, urinary hesitancy, urinary urgency, vaginal discharge, vaginal dryness, vaginal odor, vaginal pruritus or other Exam Const General: cooperative, healthy appearing, comfortable, no acute distress and well developed Orientation: alert HENMT Head: normal to inspection and normocephalic Ears: hearing grossly normal bilaterally and external ears normal Nose: external nose normal and nares normal Face and sinus: normal facial exam Neck Neck: normal visual inspection, no lymphadenopathy and trachea midline Thyroid: thyroid normal Resp Effort & Inspection: normal respiratory effort Musc Other: gross motor intact no deficits, full bilateral strength Skin General: no rashes or lesions noted Neuro Motor: muscle tone normal throughout Coding Level of Care Code Off vis,est,level 4 Diagnoses Abnormal uterine bleeding (AUB) N93.9 Pelvic pain R10.2 Assessment and Plan Assessment and Plan (1) Abnormal uterine bleeding (AUB): Status: Acute Comment: endometrial polyp plan d and c hysteroscopy symphion and liletta iud insertion Plan - Dr. Deborah Tarango MD: After discussing the patient's diagnosis and treatment plan options, patient wishes to proceed with surgical management. I have discussed with the patient the risks, benefits, and alternatives of the procedure which include but are not limited to risks of anesthesia, bleeding, infection, possible damage to bowel, bladder, or surrounding vasculature which could lead to additional surgery to evaluate any complications. Patient agrees to procedure and wishes to proceed. ACOG/uptodate references given for additional information regarding procedure. (2) Pelvic pain: Status: Acute Comment: suspect adenomyosis. plan IUD. UPDATE- I have seen the patient and performed any clinically relevant updates to the history and physical exam. Deborah Tarango MD
[2021-01-05 08:59] VITALS: BP 104/74; PULSE 73; RESP 16; TEMP 36.7; O2SAT 96; BMI 27.5
--- NOTE | 2021-01-05 09:00 | PCM.OPRPT ---
Problems Associated Problem List Diagnoses (1) Pelvic pain: (2) Abnormal uterine bleeding (AUB): Report of Operation Date of Procedure: 01/05/21 Pre-Operative Diagnosis: AUB Post-Operative Diagnosis: same Surgery/Procedure Performed:: d and c hysteroscopy Description of Surgical Findings:: thickened lining Type of Anesthesia: Local MAC Specimen's removed: emc Drains: lauren Fluids Replaced: crystalloid Description of Procedure: Patient was prepped and draped in a normal sterile fashion under MAC anesthesia. A weighted speculum was placed in the vagina and the anterior lip of the cervix was grasped with a single-tooth tenaculum. A paracervical block was placed with 1% lidocaine. Cervix was progressively dilated to allow passage of a 5 mm hysteroscope. The lining was fully visualized and noted to have thickened lining . Uterine sounded to 7 cm. Curettage was performed and moderate amount of tissue removed , sent to pathology. all instruments were removed from the vagina and excellent hemostasis was noted. Patient was awoken and taken to recovery in stable condition. Grafts/Implants Used: none Complications none Admit VTE Documentation VTE Present on Admission: No VTE Mechan Device Prophylaxis: [facility]'s VTE Pharm Prophylaxis ordered?: Yes Procedures Urinary/Genital 52xxx-59xxx: 57109 Hysteroscopy, diagnostic
--- NOTE | 2021-01-05 09:02 | EX.PCM.DISCH ---
Discharge Instructions Procedure D&C Diet Discharge Diet: No restrictions Activity Discharge Activity: Return to Normal Activity, May Shower and May Take a Tub Bath (after 1 week) May resume sexual activity in: 1-2 weeks Weight Bearing Status: Weight bearing as tolerated Lifting Restrictions: none Dressing / Incision Call your doctor if you observe: Fever of 101 or Higher, Using more than 1 pad per hour, Shortness of breath and Uncontrolled pain Follow Up Care Please Follow Up With: Deborah Tarango MD When: Call [phone] to schedule appointment. Test Results: Test results from this visit will be discussed in further detail at your follow-up appointment, if applicable. Discharge Plan Admission Primary Reason for Your Visit: d and c Attending Provider: Deborah Tarango Primary Care Provider: Gia Shultz Discharge Orders/Prescriptions Prescriptions: No Action levonorgestrel-ethinyl estrad [Altavera (28)] 0.15-0.03 mg tablet 1 tab PO DAILY Qty: 28 RF: 12 Referrals / Follow Up: Gia Shultz DO [Primary Care Provider] - Disposition Disposition (needs filled in before D/C Order can be placed): Home, Self Care
[2021-01-05] MEDS: Lactated Ringers 1,000 ML 15 ML IV (09:03)
[2021-01-05 09:05] LABS: Hematocrit 38.1 % (37-47); Hemoglobin 12.6 g/dL (12.0-15.0); Internal QC Validated? YES +Cl - CLEAR BKGD; Mean Corp Hgb Conc 33.1 g/dL (32-36); Mean Corpuscular Hgb 29.2 pg (27.0-32.0); Mean Corpuscular Volume 88.4 fL (81-99); Mean Platelet Vol. 10.2 fl (6.2-12.0); Platelet Count 258 K/mm3 (150-450); Pregnancy, Urine Negative Negative; RBC Distribution Width CV 12.3 % (11.6-14.6); RBC Distribution Width SD 40.6 fl (35.1-43.9); Red Blood Count 4.31 M/mm3 (4.2-5.4); White Blood Count 5.7 K/mm3 (4.4-11.0)
[2021-01-05] MEDS: Lidocaine 1% (20 ml mdv) 20 ML Vial (10:00)
[2021-01-05 10:20] VITALS: BP 104/74; BP 92/57; PULSE 80; RESP 18; TEMP 36.6; O2SAT 99
[2021-01-05 10:25] VITALS: BP 104/74; BP 96/67; PULSE 75; RESP 18; O2SAT 100
[2021-01-05 10:30] VITALS: BP 100/69; BP 104/74; PULSE 66; RESP 18; O2SAT 100
[2021-01-05 10:35] VITALS: BP 104/74; BP 99/68; PULSE 71; RESP 18; TEMP 36.4; O2SAT 100
[2021-01-05 11:15] VITALS: BP 104/74
== END 2021-01-05 11:15 | disposition home or self-care (01) ==
LOC: SDC 08:27 → AC 08:28
PROVIDERS: PCP Family Medicine; Referring Provider Obstetrics & Gynecology; Visit Provider Obstetrics & Gynecology
PROC: 0UB98ZZ Excision of Uterus, Via Natural or Artificial Opening Endoscopic (ICD-10-PCS; CPT 58558; principal; 2021-01-05 09:55)
DX: N71.1 Chronic inflammatory disease of uterus (principal); N85.00 Endometrial hyperplasia, unspecified; N93.9 Abnormal uterine and vaginal bleeding, unspecified; Z20.822 Contact with and (suspected) exposure to COVID-19; Z79.3 Long term (current) use of hormonal contraceptives; Z87.891 Personal history of nicotine dependence
CPT/HCPCS: 00952; 58558; 81025; 85027; 86850; 86900; 86901; 87426; 88305; C9803; J7120; J2405

== ENCOUNTER 2021-06-07 09:54 | Day surgery (SDC) | payer OTHER, SELFPAY ==
[2021-06-07] VITALS (7 sets, daily range): BP systolic 98–115; BP diastolic 60–71; PULSE 71–86; RESP 12–16; TEMP 36.4–37.3; O2SAT 99–100; BMI 27.0
--- NOTE | 2021-06-07 | IMM_PTH ---
PATIENT: SADE WOODRUFF LOC: [facility] [place] U#:[id number] AGE/SX: 25/F ROOM: RE06/07/[address]: Dr. Marry Ortiz MD : 1995 BED: DIS: 06/07/2021 SPEC #: [id number] RECD: 06/08/21 13:36 STATUS: ANNMARIE REQ #: [id number] GAYE: 06/07/21 00:[address]: Marry Ortiz DEPT: IMMUNOHISTOCHEMISTRY RECD BY: Susy Gtz ENTERED: 06/08/21 13:37 SP TYPE: IMMUNO OTHR DR: Dr. Gia Shultz, DO Tissues: Urethra, NOS Procedures: MACRO (add) Vimentin (add) MELAN-A (add) S100 (initial) PHYSICIAN & INSTITUTION [place] [id number] SPECIMEN INFORMATION: Tissue Source: Urethral diverticulum Clinical Info: Urethral diverticulum Specimen Number: [id number] CPT code: 59295, 80191 x3 METHODOLOGY: Deparaffinized sections of prefer/formalin-fixed tissue or PAP/DQ stained slides are incubated with monoclonal/polyclonal antibodies/oligonucleotide probes. Localization is made via biotin free immunoperoxidase method. Appropriate controls are performed and reacted as expected. Results on target cell population are indicated in the following table: RESULTS: ANTIBODY / CLONE RESULT S-100 (4C4.9) negative Macro (HAM-56) positive Vimentin (V9) positive Melan A (A103) negative These tests were developed and their performance characteristics determined by [facility]. They may not have been cleared or approved by the U.S. Food and Drug Administration. The FDA has determined that such clearance or approval is not necessary. The above immunohistochemical/dualISH markers are ordered and reviewed by the Pathologist. 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 SJ:arpit 06/09/2021
--- NOTE | 2021-06-07 08:20 | OP.PCM_ITS ---
Problems Associated Problem List Diagnoses (1) Urethral diverticulum: Report of Operation Date of Procedure: 06/07/21 Pre-Operative Diagnosis: urethral diverticulum Post-Operative Diagnosis: same Surgery/Procedure Performed:: excision urethral diverticulum, cystoscopy Surgeon: Marry Ortiz Type of Anesthesia: General Specimen's removed: urethral diverticulum Description of Procedure: The patient is a 25-year-old female with significant purulent drainage and positive urethral diverticulum identified on examination and on MRI. She now presents for surgical excision. Informed consent has been obtained. The patient was taken to the operating room and placed in the operating room table. She was appropriately padded and secured to the table. Anesthesia monitored the head, neck, airway, IV access and vital signs throughout the case. Once anesthesia was appropriate ministered she was placed into dorsal lithotomy position. She was prepped and draped in usual sterile fashion. A cystoscope with 12 degree lens was inserted through the urethra under direct visualization and no fistula tract was able to be identified. At this time a Sebastian catheter was inserted and the bladder was drained. The catheter was left throughout the case. She was then placed into Trendelenburg position. At this time the diverticulum was obvious at the distal urethra on the left-hand side and extending towards the bladder neck there is an area of firmness and fluctuance for approximately 1.5 to 2 cm. 1% lidocaine with epinephrine was injected submucosally for hydrostatic dissection and hemostatic control. A U-shaped incision was made over the area of the diverticulum. Sharp dissection and blunt dissection using a peanut was circumferentially performed around the area of the diverticulum until the entire thing was dissected free from the urethra. There were 2 areas surrounding the diverticulum that were full of thick yellow material. These were taken with the specimen. There is an area felt to be consistent with a fistulous track connection to the urethra. At the end of dissection this area was twisted and closed off with a 2-0 Vicryl suture and free tie. The area was irrigated and there was no visible area where the urethra was injured. The urethra however was thin underlying the area of t he diverticulum. The area was irrigated and the incision was closed using running interlocking 2-0 Vicryl. A cystoscopy was performed once more revealing no obvious injury to the urethra. Sebastian catheter was reinserted and the patient was awakened and taken to the recovery room in good condition. There were no complications during this procedure. Grafts/Implants Used: None Complications None Admit VTE Documentation VTE Present on Admission: Yes VTE Mechan Device Prophylaxis: SCD's VTE Pharm Prophylaxis ordered?: No Reason prophylaxis not ordered:: Treatment Not Indicated
--- NOTE | 2021-06-07 08:21 | PCM.DC ---
Discharge Instructions Diet Discharge Diet: No restrictions Activity Discharge Activity: May Shower May resume sexual activity in: 4 weeks Additional Activity Instructions:: no swimming, hot tubs, tub bathing or sexual activity for 4 weeks Dressing / Incision Call your doctor if your incision/area has: Continuous Slow Oozing, Sudden Increased Bleeding, Increased Pain/ Swelling and Foul Smelling Discharge Call your doctor if you observe: Fever of 101 or Higher, Inability to urinate and Inability to have a bowel movement Catheter: Sebastian to leg bag (Please give a larger bag as well to go home.) Follow Up Care Please Follow Up With: Marry Ortiz MD When: call the office for appt to be seen on Monday for Sebastian removal Test Results: Test results from this visit will be discussed in further detail at your follow-up appointment, if applicable. Discharge Plan Admission Attending Provider: Marry Ortiz Primary Care Provider: Gia Shultz Instructions Additional Instructions / Restrictions: Please take 2 of the cephalexin 250 mg tablets twice daily for the next 3 days. Discharge Orders/Prescriptions Prescriptions: New ondansetron HCl [ondansetron HCl] 8 MG tablet 8 mg PO Q8H PRN PRN (Reason: Nausea) 7 Days Qty: 20 RF: 0 oxycodone-acetaminophen [Percocet] 5-325 mg tablet 1 tab PO Q6H PRN (Reason: pain) 3 Days Qty: 20 RF: 0 phenazopyridine [Pyridium] 200 MG tablet 200 mg PO TID PRN PRN (Reason: Bladder Spasms) 7 Days Qty: 30 RF: 0 No Action levonorgestrel-ethinyl estrad [Altavera (28)] 0.15-0.03 mg tablet 1 tab PO DAILY Qty: 84 RF: 12 diphenhydramine HCl [Sleep Aid (diphenhydramine)] 25 mg Capsule 25 mg PO QHS PRN (Reason: Sleep) RF: 0 Excedrin Migraine 250-250-65 mg Tablet 1 tab PO Q6H PRN (Reason: MIGRANE) RF: 0 coenzyme Q10 30 mg Tablet,Chewable 30 mg PO DAILY RF: 0 Referrals / Follow Up: Gia Shultz DO [Primary Care Provider] - Disposition Disposition (needs filled in before D/C Order can be placed): Home, Self Care
[2021-06-07 10:27] LABS: Internal QC Validated? YES +Cl - CLEAR BKGD; Pregnancy, Urine Negative Negative
[2021-06-07] MEDS: Lactated Ringers 1,000 ML 30 ML IV (10:34)
[2021-06-07] MEDS: Cefazolin 2 GM in 0.9% Normal Saline 100 ML IV (11:09)
--- NOTE | 2021-06-07 11:30 | MISC_PTH ---
PATIENT: SADE WOODRUFF LOC: [facility] [place] U#:[id number] AGE/SX: 25/F ROOM: RE06/07/[address]: Dr. Marry Ortiz MD : 1995 BED: DIS: 06/07/2021 SPEC #: [id number] RECD: 06/07/21 13:44 STATUS: ANNMARIE REJeovany #: [id number] GAYE: 06/07/21 11:[address]: Marry Ortiz DEPT: SURGICAL PATHOLOGY RECD BY: Denise Payne ENTERED: 06/07/21 14:08 SP TYPE: [facility] OTHR DR: Dr. Gia Shultz DO Tissues: Ureter, NOS Procedures: Special Stain Group II Surgery Specimen Level IV Iron Stain (control) HEADER OPERATION: Excision, removal urethral diverticulum, cysto PRE-OP DIAGNOSIS: Urethral diverticulum TISSUE SUBMITTED: Urethral diverticulum MICROSCOPIC DIAGNOSIS Urethral diverticulum, excision: Consistent with urethral diverticulum. Chronic inflammation and extensive histiocytic reaction. See comment. YUMI:arpit 06/08/2021 COMMENT The grossly identified nodule consists of extensive histiocytic reaction. Immunohistochemistry ([id number]) supports the above diagnosis. Iron stain with matched control is also used in the evaluation of the specimen and positive for hemosiderin laden macrophages consistent with old hemorrhage. MICROSCOPIC DESCRIPTION Slides are reviewed. GROSS DESCRIPTION Received in fixative is one container labeled with the patient's name and designated urethral diverticulum. The specimen consists of a piece of sotelo soft tissue measuring 2 x 1 x 0.5 cm. Sections reveal a sotelo-yellow nodule measuring 1.5 x 0.5 x 0.4 cm. The entire specimen is submitted in one cassette. / YUMI:arpit 06/07/2021 TC:3 CPT: 39665, 75928
[2021-06-07] MEDS: Lidocaine 1% /Epi 1:100 (20ml) 20 ML Vial (12:20)
== END 2021-06-07 14:57 | disposition home or self-care (01) ==
LOC: SDC 09:55 → AC 09:55
PROVIDERS: Anesthesiology; PCP Family Medicine; Referring Provider Urology; Visit Provider Urology
PROC: (CPT 51525; principal; 2021-06-07 11:15)
DX: N36.1 Urethral diverticulum (principal); Z87.891 Personal history of nicotine dependence; Z79.899 Other long term (current) drug therapy; N39.0 Urinary tract infection, site not specified
CPT/HCPCS: 53230; 81025; 87426; 88305; 88313; 88341; 88342; C9803; J7120; J2405